=== PATIENT | male | born 2000 | race Caucasian/White ===

== ENCOUNTER → 2023-08-18 06:32 | Day surgery (SDC) | payer OTHER, SELFPAY | LOC: GI 06:32 | PROVIDERS: ATTENDING PHYSICIAN Internal Medicine Gastroenterology | DX: K62.1 Rectal polyp (principal); K64.8 Other hemorrhoids | CPT/HCPCS: 45331; 88305 ==

== ENCOUNTER → 2024-04-04 16:10 | Outpatient (REF) | payer BC, SELFPAY ==
[2024-04-04 16:37] LABS: % Basophils 0.5 % (0-2); % Eosinophils 3.7 % (0-6); % Immature Granulocytes 0.5 % (0-0.5); % Lymphocytes 40.9 % (20.5-51.1); % Monocytes 8.9 % (1.7-9.3); % Neutrophils 45.5 % (42.2-75.2); Absolute Eosinophils 0.2 10^3/uL (0-0.7); Absolute Lymphocytes 2.6 10^3/uL (1.2-3.4); Absolute Monocytes 0.6 10^3/uL (0.1-0.6); Absolute Neutrophils 2.9 10^3/uL (1.4-6.5); Hematocrit 39.9 % (39.0-52.0); Mean Corp Hgb Conc. 35.1 g/dL (33.0-37.0); Mean Corpuscular Volume 85.4 fL (80.0-94.0); Mean Platelet Volume 10.2 fL (7.4-10.4); Nucleated Red Blood Cells % 0 % (-); Platelet Count 203 10^3/uL (130-400); Red Blood Cell Count 4.67 10^6/uL (4.70-6.10); Red Cell Dist. Width 12.6 % (11.5-14.5); White Blood Cell Count 6.3 10^3/uL (4.8-10.8)
[2024-04-04 16:47] LABS: ALT (SGPT) 13 U/L (0-50); AST (SGOT) 25 U/L (17-59); Albumin 5.1 g/dl (3.5-5.0); Alkaline Phosphatase 41 U/L (38-126); Blood Urea Nitrogen 19 mg/dl (9-20); Calcium 9.8 mg/dl (8.4-10.2); Carbon Dioxide 29 mmol/L (22-30); Chloride 99 mmol/L (98-107); Glucose 100 mg/dl (70-99); Potassium 4.1 mmol/L (3.5-5.1); Sodium 139 mmol/L (135-145); Total Bilirubin 1.6 mg/dl (0.2-1.3); Total Protein 7.7 g/dl (6.3-8.2); eGFR > 60.00
[2024-04-04 17:18] LABS: TSH Reflex To Free T4 1.11 uIU/ml (0.47-4.68)
== END ==
LOC: REG 16:10
PROVIDERS: ATTENDING PHYSICIAN Nurse Practitioner Adult Health
DX: K59.01 Slow transit constipation (principal); R53.83 Other fatigue
CPT/HCPCS: 36415; 80053; 84443; 85025

== ENCOUNTER → 2024-04-05 13:57 | Outpatient (REF) | payer BC, SELFPAY ==
[2024-04-05 15:20] LABS: Erythrocyte Sed Rate 8 mm/hour (0-20)
[2024-04-05 15:26] LABS: C-Reactive Protein < 5.00 mg/L (0.0-10.00)
[2024-04-05 15:30] LABS: IgA 141 mg/dl (70-400)
== END ==
LOC: REG 13:57
PROVIDERS: ATTENDING PHYSICIAN Physician Assistant; FAMILY PHYSICIAN Nurse Practitioner Adult Health
DX: R19.4 Change in bowel habit (principal)
CPT/HCPCS: 36415; 82784; 83516; 85652; 86140; 86231